=== PATIENT | female | born 1995 | race Caucasian/White ===

== ENCOUNTER 2024-04-08 02:11 | Emergency (ER) | payer SELFPAY ==
[~2024-04-08] VITALS: Ht 172.7 cm; Wt 67.1 kg
[2024-04-08 02:34] VITALS: TEMP 98
[2024-04-08] MEDS ORDERED: ONDANSETRON HCL/PF 4 MG/2 ML VIAL ONE ×2 (03:44→09:27)
[2024-04-08] MEDS ORDERED: methylPREDNISolone SOD SUCC 125 MG/2ML VIAL ONE (03:44)
[2024-04-08 03:58] LABS: BASOPHILS # (AUTO) 0.1 K/uL (0.0-0.2); BASOPHILS % (AUTO) 0.8 % (0.0-2.0); EOSINOPHILS # (AUTO) 0.3 K/uL (0.0-0.7); EOSINOPHILS % (AUTO) 4.1 % (0.0-6.0); HEMATOCRIT 36 % (33-45); HEMOGLOBIN 12.4 g/dL (11.5-14.8); LYMPHOCYTES # (AUTO) 1.4 K/uL (0.8-4.8); LYMPHOCYTES % (AUTO) 23.1 % (20.0-44.0); MEAN CORPUSCULAR HEMOGLOBIN 33 PG (26.0-33.0); MEAN CORPUSCULAR HGB CONC 34 g/dl (31.0-36.0); MEAN CORPUSCULAR VOLUME 95 fL (82-100); MONOCYTES # (AUTO) 0.5 K/uL (0.1-1.30); MONOCYTES % (AUTO) 7.5 % (2.0-12.0); NEUTROPHILS % (AUTO) 64.5 % (43.0-81.0); PLATELET COUNT (AUTO) 310 K/uL (150-450); RED BLOOD CELL COUNT(AUTO) 3.77 MIL/uL (4.0-5.2); RED CELL DISTRIBUTION WIDTH 12.6 % (11.5-15.0); WHITE BLOOD COUNT (AUTO) 6.3 K/uL (4.3-11.0)
[2024-04-08] MEDS: IV NS 0.9% 1,000 ML IV ONE (04:01)
[2024-04-08] MEDS: methylPREDNISolone SOD SUCC 125 MG/2ML VIAL IV ONE (04:01)
[2024-04-08] MEDS: ONDANSETRON HCL/PF - ER 4 MG/2 ML VIAL IV ONE ×2 (04:01→09:36)
[2024-04-08 04:20] LABS: CALCIUM, SERUM 9.4 mg/dL (8.5-10.1); CREATININE 0.6 mg/dL (0.6-1.3); POTASSIUM 3.9 mmol/L (3.5-5.1)
[2024-04-08 04:26] LABS: ALBUMIN 3.3 g/dL (3.4-5.0); BILIRUBIN,TOTAL 0.8 mg/dL (0.2-1.0); TOTAL PROTEIN, SERUM 7.7 g/dL (6.4-8.2)
[2024-04-08 04:29] LABS: LACTIC ACID 0.7 mmol/L (0.4-2.0)
[2024-04-08] MEDS ORDERED: ONDA4TAB5 PO (05:32)
[2024-04-08] MEDS ORDERED: PRED20TA PO (05:32)
[2024-04-08] MEDS ORDERED: MORPHINE SULFATE INJ 2 MG/ML DISP.SYRIN ONE (05:34)
[2024-04-08] MEDS: MORPHINE SULFATE INJ 2 MG/ML DISP.SYRIN IV ONE ×2 (05:48→09:37)
[2024-04-08 07:10] LABS: APPEARANCE,URINE CLEAR (CLEAR); BILIRUBIN,URINE NEGATIVE (NEGATIVE); BLOOD, URINE NEGATIVE Ery/uL (NEGATIVE); COLOR,URINE YELLOW (YELLOW); KETONES,URINE NEGATIVE (NEGATIVE); LEUKOCYTE ESTERASE ,URINE NEGATIVE (NEGATIVE); NITRITE, URINE NEGATIVE (NEGATIVE); PH,URINE 6.5 (5.0-8.0); PROTEIN,URINE NEGATIVE (NEGATIVE); UGLUCOSE NEGATIVE (NEGATIVE); UROBILINOGEN,URINE 0.2 EU/dL (0.2)
[2024-04-08 07:12] LABS: PREGNANCY TEST URINE QUAL NEGATIVE (NEGATIVE)
[2024-04-08] MEDS ORDERED: MORPHINE SULFATE INJ 4 MG/ML DISP.SYRIN ONE (09:27)
[2024-04-08] MEDS ORDERED: CIPR-262 PO (11:07)
[2024-04-08] MEDS ORDERED: METR500T PO (11:07)
[2024-04-08 11:28] VITALS: BP 119/81; O2SAT 99
== END 2024-04-08 11:29 | disposition home or self-care (01) ==
LOC: ER 02:22
DX: R10.31 Right lower quadrant pain (principal); R11.2 Nausea with vomiting, unspecified; K50.90 Crohn's disease, unspecified, without complications; Z88.8 Allergy status to other drugs, medicaments and biological substances
CPT/HCPCS: 99285; 74176; 96374; 96375; 96361; 96376; 85025; 83605; 83690; 84703; 81003; 36415; 80053; J2270 ×2; J2919; J2405 ×3; J7030

== ENCOUNTER 2024-05-21 15:57 | Emergency (ER) | payer SELFPAY ==
[~2024-05-21] VITALS: Ht 172.7 cm; Wt 59.0 kg
[~2024-05-21 15:57] MED LIST: CIPR-262 PO; METR500T PO; ONDA4TAB5 PO; PRED20TA PO
[2024-05-21] MEDS: MORPHINE SULFATE INJ 2 MG/ML DISP.SYRIN IV ONE ×2 (18:30→19:59)
[2024-05-21] MEDS ORDERED: MORPHINE SULFATE INJ 2 MG/ML DISP.SYRIN ONE (18:40)
[2024-05-21 18:53] LABS: BASOPHILS % (AUTO) 0.6 % (0.0-2.0); EOSINOPHILS # (AUTO) 0.2 K/uL (0.0-0.7); EOSINOPHILS % (AUTO) 2.8 % (0.0-6.0); HEMATOCRIT 36 % (33-45); HEMOGLOBIN 11.7 g/dL (11.5-14.8); LYMPHOCYTES # (AUTO) 1.4 K/uL (0.8-4.8); LYMPHOCYTES % (AUTO) 17.4 % (20.0-44.0); MEAN CORPUSCULAR HEMOGLOBIN 31 PG (26.0-33.0); MEAN CORPUSCULAR HGB CONC 33 g/dl (31.0-36.0); MEAN CORPUSCULAR VOLUME 96 fL (82-100); MONOCYTES # (AUTO) 0.6 K/uL (0.1-1.30); MONOCYTES % (AUTO) 7.3 % (2.0-12.0); NEUTROPHILS # (AUTO) 5.9 K/uL (1.8-8.9); NEUTROPHILS % (AUTO) 71.9 % (43.0-81.0); PLATELET COUNT (AUTO) 290 K/uL (150-450); RED BLOOD CELL COUNT(AUTO) 3.74 MIL/uL (4.0-5.2); WHITE BLOOD COUNT (AUTO) 8.2 K/uL (4.3-11.0)
[2024-05-21 18:55] LABS: PREGNANCY TEST URINE QUAL NEGATIVE (NEGATIVE)
[2024-05-21 19:02] LABS: CALCIUM, SERUM 8.4 mg/dL (8.5-10.1); CREATININE 0.6 mg/dL (0.6-1.3)
[2024-05-21] MEDS ORDERED: IV NS 0.9% 250 ML IV ONE (19:18)
[2024-05-21] MEDS ORDERED: IOHEXOL-300 100 ML VIAL IV ONE (19:18)
[2024-05-21] MEDS ORDERED: MORPHINE SULFATE INJ 4 MG/ML DISP.SYRIN ONE (19:58)
[2024-05-21] MEDS ORDERED: HYDR-4209 PO (21:07)
[2024-05-21] MEDS ORDERED: CLIN300C12 PO (21:07)
[2024-05-21] MEDS ORDERED: HYDROCODONE/APAP 5/325MG TABLET ONE (21:42)
[2024-05-21] MEDS ORDERED: CLINDAMYCIN HCL 150 MG CAPSULE ONE (21:42)
[2024-05-21] MEDS: HYDROCODONE/APAP 5/325MG TABLET PO ONE (21:50)
[2024-05-21] MEDS: CLINDAMYCIN HCL 150 MG CAPSULE PO ONE (21:50)
[2024-05-22 01:18] VITALS: BP 110/92; TEMP 98.6; O2SAT 99
== END 2024-05-22 01:19 | disposition home or self-care (01) ==
LOC: ER 16:01
DX: L03.317 Cellulitis of buttock (principal); K50.90 Crohn's disease, unspecified, without complications; R10.2 Pelvic and perineal pain; Z88.6 Allergy status to analgesic agent; Z88.8 Allergy status to other drugs, medicaments and biological substances; Z79.52 Long term (current) use of systemic steroids
CPT/HCPCS: 99285; 96374; 72193; 85025; 80048; 84703; 36415; 84702; 96376; J2270 ×2; J7050; Q9967

== ENCOUNTER 2024-06-22 14:48 | Emergency (ER) | payer MEDICAID ==
[~2024-06-22] VITALS: Ht 172.7 cm; Wt 61.2 kg
[~2024-06-22 14:48] MED LIST changes: +CLIN300C12 PO; +HYDR-4209 PO
[2024-06-22] MEDS ORDERED: MORPHINE SULFATE INJ 4 MG/ML DISP.SYRIN ONE ×2 (15:16→17:38)
[2024-06-22] MEDS ORDERED: ONDANSETRON HCL/PF 4 MG/2 ML VIAL ONE (15:26)
[2024-06-22] MEDS: IV NS 0.9% 1,000 ML BAG IV ONE (15:35)
[2024-06-22] MEDS: ONDANSETRON HCL/PF 4 MG/2 ML VIAL IV ONE (15:38)
[2024-06-22] MEDS: MORPHINE SULFATE INJ 2 MG/ML DISP.SYRIN IV ONE ×2 (15:40→17:42)
[2024-06-22 15:55] LABS: CALCIUM, SERUM 8.2 mg/dL (8.5-10.1); CREATININE 0.8 mg/dL (0.6-1.3); POTASSIUM 3.7 mmol/L (3.5-5.1)
[2024-06-22 16:00] LABS: ALBUMIN 3.4 g/dL (3.4-5.0); BILIRUBIN,DIRECT 0.1 mg/dL (0.0-0.2); BILIRUBIN,TOTAL 0.5 mg/dL (0.2-1.0); RED BLOOD CELL COUNT(AUTO) 3.38 MIL/uL (4.0-5.2); TOTAL PROTEIN, SERUM 7.5 g/dL (6.4-8.2)
[2024-06-22 16:01] LABS: HEMATOCRIT 32 % (33-45); HEMOGLOBIN 10.7 g/dL (11.5-14.8); MEAN CORPUSCULAR HEMOGLOBIN 32 PG (26.0-33.0); MEAN CORPUSCULAR HGB CONC 33 g/dl (31.0-36.0); MEAN CORPUSCULAR VOLUME 95 fL (82-100); PLATELET COUNT (AUTO) 295 K/uL (150-450)
[2024-06-22 16:38] LABS: EOSINOPHILS % (MANUAL) 5 % (0-4); LYMPHOCYTES % (MANUAL) 22 % (16-48); MONOCYTES % (MANUAL) 2 % (0-11.0); NEUTROPHILS % (MANUAL) 71 (42-76)
[2024-06-22 16:39] LABS: PLATELET ESTIMATE ADEQUATE
[2024-06-22 17:38] LABS: APPEARANCE,URINE CLEAR (CLEAR); BILIRUBIN,URINE NEGATIVE (NEGATIVE); BLOOD, URINE 1+ Ery/uL (NEGATIVE); COLOR,URINE YELLOW (YELLOW); KETONES,URINE NEGATIVE (NEGATIVE); LEUKOCYTE ESTERASE ,URINE NEGATIVE (NEGATIVE); NITRITE, URINE NEGATIVE (NEGATIVE); PROTEIN,URINE NEGATIVE (NEGATIVE); UGLUCOSE NEGATIVE (NEGATIVE); UROBILINOGEN,URINE 0.2 EU/dL (0.2)
[2024-06-22 17:39] LABS: ADD URINE CULTURE NO; BACTERIA,URINE Few /HPF (None Seen); SQUAMOUS EPITHELIAL CELL,UR Few /HPF (None Seen); WBC,URINE 0-2 /HPF (0-3)
[2024-06-22] MEDS ORDERED: HYDR-3976 GT (19:07)
[2024-06-22 19:49] VITALS: BP 134/97; TEMP 98.1; O2SAT 95
== END 2024-06-22 19:48 | disposition home or self-care (01) ==
LOC: ER 14:50
DX: K50.90 Crohn's disease, unspecified, without complications (principal); R10.9 Unspecified abdominal pain; Z88.6 Allergy status to analgesic agent; Z79.52 Long term (current) use of systemic steroids; Z90.49 Acquired absence of other specified parts of digestive tract; Z88.8 Allergy status to other drugs, medicaments and biological substances
CPT/HCPCS: 99285; 96374; 96361; 96375; 96376; 85025; 80048; 83690; 80076; 85652; 81001; 36415; 86140; 85007; J2270 ×2; J2405; J7030

== ENCOUNTER 2024-07-01 16:12 | Emergency (ER) | payer MEDICAID ==
[~2024-07-01] VITALS: Ht 172.7 cm; Wt 61.2 kg
[~2024-07-01 16:12] MED LIST changes: +HYDR-3976 GT
[2024-07-01 17:57] LABS: BASOPHILS # (AUTO) 0.1 K/uL (0.0-0.2); BASOPHILS % (AUTO) 1.2 % (0.0-2.0); EOSINOPHILS # (AUTO) 0.3 K/uL (0.0-0.7); EOSINOPHILS % (AUTO) 4.2 % (0.0-6.0); HEMATOCRIT 37 % (33-45); HEMOGLOBIN 12.4 g/dL (11.5-14.8); LYMPHOCYTES # (AUTO) 1.1 K/uL (0.8-4.8); MEAN CORPUSCULAR HEMOGLOBIN 32 PG (26.0-33.0); MEAN CORPUSCULAR HGB CONC 33 g/dl (31.0-36.0); MEAN CORPUSCULAR VOLUME 96 fL (82-100); MONOCYTES # (AUTO) 0.5 K/uL (0.1-1.30); MONOCYTES % (AUTO) 7.6 % (2.0-12.0); NEUTROPHILS # (AUTO) 4.6 K/uL (1.8-8.9); PLATELET COUNT (AUTO) 384 K/uL (150-450); RED BLOOD CELL COUNT(AUTO) 3.86 MIL/uL (4.0-5.2); WHITE BLOOD COUNT (AUTO) 6.5 K/uL (4.3-11.0)
[2024-07-01] MEDS: IV NS 0.9% 1,000 ML BAG IV ONE (18:12)
[2024-07-01] MEDS ORDERED: ONDANSETRON HCL/PF 4 MG/2 ML VIAL ONE (18:13)
[2024-07-01] MEDS ORDERED: FAMOTIDINE/PF INJ 20 MG/2 ML VIAL IV ONE (18:14)
[2024-07-01] MEDS ORDERED: MORPHINE SULFATE INJ 2 MG/ML DISP.SYRIN ONE (18:14)
[2024-07-01 18:16] LABS: CALCIUM, SERUM 8.7 mg/dL (8.5-10.1); CREATININE 0.6 mg/dL (0.6-1.3); POTASSIUM 4.1 mmol/L (3.5-5.1)
[2024-07-01] MEDS: ONDANSETRON HCL/PF 4 MG/2 ML VIAL IVP ONE (18:19)
[2024-07-01 18:20] LABS: ALBUMIN 3.8 g/dL (3.4-5.0); BILIRUBIN,DIRECT 0.2 mg/dL (0.0-0.2); BILIRUBIN,TOTAL 0.8 mg/dL (0.2-1.0); TOTAL PROTEIN, SERUM 8.1 g/dL (6.4-8.2)
[2024-07-01] MEDS: MORPHINE SULFATE INJ 2 MG/ML DISP.SYRIN IV ONE (18:20)
[2024-07-01] MEDS: FAMOTIDINE/PF INJ 20 MG/2 ML VIAL IV ONE (18:20)
[2024-07-01] MEDS: ACETAMINOPHEN ES 500 MG TABLET PO ONE (19:18)
[2024-07-01 19:25] VITALS: BP 121/73; TEMP 98; O2SAT 98
== END 2024-07-01 19:25 | disposition home or self-care (01) ==
LOC: ER 16:18
DX: R10.84 Generalized abdominal pain (principal); R10.2 Pelvic and perineal pain; Z79.52 Long term (current) use of systemic steroids; Z88.6 Allergy status to analgesic agent
CPT/HCPCS: 99285; 74176; 96374; 96375; 96361; 85025; 80048; 83690; 80076; 36415; 84702; J3490; J2405; J7030; J2270

== ENCOUNTER 2024-08-20 04:17 | Emergency (ER) | payer MEDICAID ==
[~2024-08-20] VITALS: Ht 172.7 cm; Wt 59.0 kg
[2024-08-20] MEDS ORDERED: IOHEXOL-300 100 ML VIAL IV ONE (05:19)
[2024-08-20] MEDS ORDERED: CT SWABBABLE VALVE TRANS SET 1 EA INFUS.SET MC ONE (05:19)
[2024-08-20] MEDS ORDERED: IV NS 0.9% 250 ML IV ONE (05:19)
[2024-08-20] MEDS ORDERED: ONDANSETRON HCL/PF 4 MG/2 ML VIAL ONE ×2 (05:25→05:55)
[2024-08-20] MEDS ORDERED: FAMOTIDINE/PF INJ 20 MG/2 ML VIAL IV ONE (05:26)
[2024-08-20] MEDS: IV NS 0.9% 1,000 ML BAG IV ONE (05:27)
[2024-08-20] MEDS ORDERED: HYDROCODONE/APAP 10/325MG TABLET ONE (05:27)
[2024-08-20] MEDS: FAMOTIDINE/PF INJ 20 MG/2 ML VIAL IV ONE (05:28)
[2024-08-20] MEDS: ONDANSETRON HCL/PF 4 MG/2 ML VIAL IVP ONE (05:28)
[2024-08-20 05:36] LABS: BASOPHILS # (AUTO) 0.1 K/uL (0.0-0.2); BASOPHILS % (AUTO) 1.3 % (0.0-2.0); EOSINOPHILS # (AUTO) 0.3 K/uL (0.0-0.7); EOSINOPHILS % (AUTO) 4.3 % (0.0-6.0); HEMATOCRIT 35 % (33-45); LYMPHOCYTES # (AUTO) 1.6 K/uL (0.8-4.8); LYMPHOCYTES % (AUTO) 25.4 % (20.0-44.0); MEAN CORPUSCULAR HEMOGLOBIN 33 PG (26.0-33.0); MEAN CORPUSCULAR HGB CONC 35 g/dl (31.0-36.0); MEAN CORPUSCULAR VOLUME 94 fL (82-100); MONOCYTES # (AUTO) 0.4 K/uL (0.1-1.30); MONOCYTES % (AUTO) 6.5 % (2.0-12.0); NEUTROPHILS # (AUTO) 3.9 K/uL (1.8-8.9); NEUTROPHILS % (AUTO) 62.5 % (43.0-81.0); PLATELET COUNT (AUTO) 372 K/uL (150-450); RED BLOOD CELL COUNT(AUTO) 3.67 MIL/uL (4.0-5.2); RED CELL DISTRIBUTION WIDTH 13.5 % (11.5-15.0); WHITE BLOOD COUNT (AUTO) 6.3 K/uL (4.3-11.0)
[2024-08-20] MEDS: HYDROCODONE/APAP 10/325MG TABLET PO ONE (05:45)
[2024-08-20 05:52] LABS: ALBUMIN 3.7 g/dL (3.4-5.0); BILIRUBIN,DIRECT 0.2 mg/dL (0.0-0.2); BILIRUBIN,TOTAL 0.8 mg/dL (0.2-1.0); CALCIUM, SERUM 9.1 mg/dL (8.5-10.1); CREATININE 0.6 mg/dL (0.6-1.3); POTASSIUM 3.1 mmol/L (3.5-5.1); TOTAL PROTEIN, SERUM 7.8 g/dL (6.4-8.2)
[2024-08-20] MEDS: ONDANSETRON HCL/PF - ER 4 MG/2 ML VIAL IV ONE (06:09)
[2024-08-20 07:12] LABS: APPEARANCE,URINE CLEAR (CLEAR); BILIRUBIN,URINE NEGATIVE (NEGATIVE); BLOOD, URINE 2+ Ery/uL (NEGATIVE); COLOR,URINE YELLOW (YELLOW); KETONES,URINE NEGATIVE (NEGATIVE); LEUKOCYTE ESTERASE ,URINE NEGATIVE (NEGATIVE); NITRITE, URINE NEGATIVE (NEGATIVE); PROTEIN,URINE NEGATIVE (NEGATIVE); UGLUCOSE NEGATIVE (NEGATIVE); UROBILINOGEN,URINE 0.2 EU/dL (0.2)
[2024-08-20 07:13] LABS: PREGNANCY TEST URINE QUAL NEGATIVE (NEGATIVE)
[2024-08-20] MEDS ORDERED: PRED50TA PO (07:30)
[2024-08-20] MEDS ORDERED: OXYC-128 PO (07:30)
[2024-08-20] MEDS ORDERED: PHEN16.234 PO (07:30)
[2024-08-20] MEDS ORDERED: ONDA4TAB5 PO (07:30)
[2024-08-20 07:38] LABS: RBC,URINE 21-50 /HPF (0-2)
[2024-08-20 07:39] LABS: ADD URINE CULTURE NO; BACTERIA,URINE Rare /HPF (None Seen); SQUAMOUS EPITHELIAL CELL,UR 0-2 /HPF (None Seen); WBC,URINE 0-2 /HPF (0-3)
[2024-08-20 07:46] LABS: AMPHETAMINE, URINE NEGATIVE (NEGATIVE); BARBITURATE, URINE NEGATIVE (NEGATIVE); BENZODIAZEPINE, URINE NEGATIVE (NEGATIVE); CANNABINOID, URINE NEGATIVE (NEGATIVE); COCCAINE, URINE NEGATIVE (NEGATIVE); PHENCYCLIDINE SCREEN,URINE NEGATIVE (NEGATIVE)
[2024-08-20 07:56] LABS: OPIATE, URINE POSITIVE (NEGATIVE)
[2024-08-20] MEDS ORDERED: MORPHINE SULFATE INJ 4 MG/ML DISP.SYRIN ONE (07:56)
[2024-08-20] MEDS: MORPHINE SULFATE INJ 2 MG/ML DISP.SYRIN IV ONE (08:02)
[2024-08-20 09:50] VITALS: BP 138/103; TEMP 98.7; O2SAT 98
== END 2024-08-20 09:51 | disposition home or self-care (01) ==
LOC: ER 04:20
DX: R10.9 Unspecified abdominal pain (principal); R10.2 Pelvic and perineal pain; K50.90 Crohn's disease, unspecified, without complications; Z79.52 Long term (current) use of systemic steroids; Z88.6 Allergy status to analgesic agent
CPT/HCPCS: 99285; 74177; 96374; 96375; 96361; 96376; 85025; 80048; 83690; 80076; 84703; 36415; 80307; 81001; J2270; J3490; J2405 ×3; J7030; J7050; Q9967